=== PATIENT | female | born 1960 ===

== ENCOUNTER 2024-05-23 05:30 | Day surgery (SDC) | payer OTHER ==
[2024-05-23] MEDS ORDERED: POVIDONE-IODINE 118 ML BOTT TOP ONE (09:05)
[2024-05-23] MEDS ORDERED: MORPHINE SULFATE 4 MG/ML VIAL IV PRN (10:15)
== END 2024-05-23 14:05 | disposition home or self-care (01) ==
LOC: CIR.AMB 05:30
PROVIDERS: ATTEND Obstetrics & Gynecology
DX: N87.1 Moderate cervical dysplasia (principal)